=== PATIENT | male | born 1985 | race Caucasian/White ===

== ENCOUNTER 2016-11-30 10:22 | Emergency (ER) | payer OTHER ==
[~2016-11-30] VITALS: Wt 84.0 kg
[~2016-11-30 10:22] MED LIST: CLIN-73 PO; HYDR-3498 PO; IBUP-1542 PO; PRED20TA PO
[2016-11-30] MEDS ORDERED: IBUPROFEN 600 MG TAB PO ONE (11:30)
--- NOTE | 2016-11-30 11:31 | ERD ---
ER Documentation Chief Complaint Date/Time DATE: 11/30/16 TIME: 11:26 Chief Complaint RIGHT ANKLE PAIN/SWELLING, ONSET 2 DAYS, NO INJURY HPI Patient is a 31 year old male with no past medical history who presents to the ED with right ankle pain x 2 days. Patient states that the pain came on suddenly. Denies any injury or trauma. He states that he had a similar episode 2 years ago. Denies fever or chills. Denies calf pain. Denies chest pain or cough or shortness of breath. Denies history of DVT or PEs in the past. Denies recent URIs. States that he has pain when he applies pressure on his foot. No other complaints. ROS All systems reviewed and are negative except as per history of present illness. Medications Home Meds Active Scripts Ibuprofen* (Motrin*) 600 Mg Tab, 600 MG PO Q6, #30 TAB Prov:KENNETH SANTILLAN PA-C 11/30/16 Prednisone* (Prednisone*) 20 Mg Tab, 60 MG PO DAILY for 7 Days, TAB Take prednisone 60 mg PO x 3 days followed by prednisone 40mg x 4 days Prov:KENNETH SANTILLAN PA-C 11/30/16 Hydrocodone Bit-Acetaminophen* (Crestline*) 5-325 Mg Tab, 1 TAB PO Q6 Y for PAIN, # 7 TAB Prov:THA TEJEDA PA-C 10/12/15 Ibuprofen* (Motrin*) 600 Mg Tab, 600 MG PO Q6, #20 TAB Prov:THA TEJEDA PA-C 10/12/15 Prednisone* (Prednisone*) 20 Mg Tab, 40 MG PO DAILY for 4 Days, TAB Prov:DANG PURDY MD 01/09/15 Clindamycin Hcl* (Clindamycin Hcl*) 300 Mg Capsule, 300 MG PO QID for 7 Days, CAP Prov:DANG PURDY MD 01/09/15 Allergies Allergies: Coded Allergies: No Known Allergy (Unverified , 10/12/15) PMhx/Soc Medical and Surgical Hx: pt denies Medical Hx, pt denies Surgical Hx History of Surgery: No Anesthesia Reaction: No Hx Neurological Disorder: No Hx Respiratory Disorders: No Hx Cardiac Disorders: No Hx Psychiatric Problems: No Hx Miscellaneous Medical Probl: No Hx Alcohol Use: Yes (socially) Hx Substance Use: No Hx Tobacco Use: No Smoking Status: Never smoker Physical Exam Vitals Vital Signs Date Time Temp Pulse Resp B/P Pulse Ox O2 Delivery O2 Flow Rate FiO2 11/30/16 10:27 97.8 96 17 135/86 98 Physical Exam GENERAL: Well-developed, well-nourished male. Appears in no acute distress. HEAD: Normocephalic, atraumatic. EYES: Pupils are equally reactive bilaterally. EOMs grossly intact. No conjunctival erythema. ENT: Moist mucous membranes. No uvula deviation. No kissing tonsils. No exudates. NECK: Supple. No lymphadenopathy or thyromegaly. No meningismus. negative kernig. negative brudinski. LUNG: Clear to auscultation bilaterally. No rhonchi, wheezing, rales or coarse breath sounds. HEART: Regular rate and rhythm. No murmurs, rubs or gallops. Extremities: Equal pulses bilaterally. No peripheral clubbing, cyanosis or edema. No unilateral leg swelling. Tenderness to the bilateral malleoli of the right ankle. With mild erythema and no swelling. No calf pain negative Homans sign. No palpable cord. Pulses intact bilaterally. Sensation intact. No pain above the ankle joint per NEUROLOGIC: Alert and oriented. Moving all four extremities. 5/5 strength in all extremities. Normal speech. unSteady gait. SKIN: Normal color. Warm and dry. No rashes or lesions. Capillary refill < 2 seconds Results 24 hrs Laboratory Tests Test 11/30/16 11:12 Uric Acid 9.1mg/dl Current Medications Medications (Trade) Dose Ordered Sig/Prabhjot Route PRN Reason Start Time Stop Time Status Last Admin Dose Admin Ibuprofen (Motrin) 600 mg ONCE ONCE PO 11/30/16 11:30 11/30/16 11:31 DC 11/30/16 11:24 Procedures/MDM ER COURSE: I kept the patient and/or family informed of laboratory and diagnostic imaging results throughout the emergency room course. IMAGING STUDIES [place] [id number] Radiology Main Line: [phone] DIAGNOSTIC IMAGING REPORT Patient: JAREN FAIR : 1985 Age: 31 Sex: M MR #: [id number] DOS: 11/30/16 1107 Ordering MD: KENNETH SANTILLAN PA-C Location: [facility] Room/Bed: PROCEDURE: XR Ankle. CLINICAL INDICATION: Right ankle pain TECHNIQUE: 3 views of the right ankle were performed. COMPARISON: Radiographs of the right ankle October 12, 2015 FINDINGS: There is a chronic bone fragment along the anterior margin of the distal fibula measuring 6 mm, likely from a remote injury. There is mild lateral soft tissue swelling. No acute fracture is identified. Joint spaces are preserved. IMPRESSION: 1. 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 2. MRI can be considered for further assessment of ligament abnormality or possible lateral ankle impingement as clinically warranted. RPTAT: [facility]U .Manoj Chacon MD, Date Time Electronically viewed and signed by .Manoj Chacon MD, on 11/30/2016 12: 04 .K/ CC: KENNETH SANTILLAN PA-C MEDICATIONS Ibuprofen. Tolerated well with no adverse reaction per MEDICAL DECISION MAKING: This is a 31-year-old male with no past medical who presents with right ankle pain 2 days. Vital signs were reviewed. Patient is afebrile. Patient is not hypoxic. Patient is not toxic or ill-appearing. 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 His uric acid is also slightly elevated. Patient was given an Donal wrap and crutches. He was neurovascularly intact post placement. I will be treating the patient for gout as well. Low suspicion for dislocation, fracture , septic joint, compartment syndrome, osteomyelitis, avascular necrosis, DVT, Achilles tendon rupture, cellulitis. At this time, unable to rule out any tendon and ligament injuries. DISCHARGE: At this time, patient is stable for discharge and outpatient management with no new complaints during the ER course. Patient was sent home with ibuprofen and prednisone and a copy of imaging report. Patient will be discharged home with instructions to recheck for new or worsening symptoms such as fever, nausea, weakness, LOC and to follow up with primary care in the next 1-2 days. Patient was advised to return to the ER for any new or worsening symptoms. Plan was discussed and patient and/or family understands and agrees. Home instructions were given. Departure Diagnosis: Primary Impression: Right ankle pain Chronicity: acute Qualified Code: M25.571 - Acute right ankle pain Condition: Stable KENNETH SANTILLAN PA-C Nov 30, 2016 11:31
--- NOTE | 2016-11-30 12:05 | RADRPT ---
PROCEDURE: XR Ankle. CLINICAL INDICATION: Right ankle pain TECHNIQUE: 3 views of the right ankle were performed. COMPARISON: Radiographs of the right ankle October 12, 2015 FINDINGS: There is a chronic bone fragment along the anterior margin of the distal fibula measuring 6 mm, like ly from a remote injury. There is mild lateral soft tissue swelling. No acute fracture is identified. Joint spaces are preserved. IMPRESSION: 1. 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 2. MRI can be considered for further assessment of ligament abnormality or possible lateral ankle im pingement as clinically warranted. RPTAT: [facility]U .Manoj Chacon MD, MD Date Time Electronically viewed and signed by .Manoj Chacon MD, on 11/30/2016 12:04 .K/
[2016-11-30] MEDS ORDERED: IBUP-1542 PO (12:27)
[2016-11-30] MEDS ORDERED: PRED20TA PO (12:27)
[2016-11-30 13:10] VITALS: BP 136/78; PULSE 82; RESP 18; TEMP 98.1
== END 2016-11-30 13:10 | disposition home or self-care (01) ==
LOC: FTE 10:22
DX: M25.571 Pain in right ankle and joints of right foot (principal)
CPT/HCPCS: 84560